=== PATIENT | male | born 2000 | race Caucasian/White ===

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

== ENCOUNTER 2021-05-22 21:32 | Emergency (ER) | payer OTHER ==
[~2021-05-22] VITALS: Ht 172.7 cm; Wt 94.7 kg
--- NOTE | 2021-05-22 23:03 | REPVR ---
PROCEDURE INFORMATION: Exam: CT Head Without Contrast Exam date and time: 05/22/2021 10:19 PM Age: 21 years old Clinical indication: Injury or trauma; Fall; Blunt trauma (contusions or hematomas) TECHNIQUE: Imaging protocol: Computed tomography of the head without contrast. Radiation optimization: All CT scans at this facility use at least one of these dose optimization techniques: automated exposure control; mA and/or kV adjustment per patient size (includes targeted exams where dose is matched to clinical indication); or iterative reconstruction. COMPARISON: No relevant prior studies available. FINDINGS: Brain: Normal. No hemorrhage. Unremarkable white matter. No mass effect. Cerebral ventricles: No ventriculomegaly. Paranasal sinuses: Visualized sinuses are unremarkable. No fluid levels. Mastoid air cells: Visualized mastoid air cells are well aerated. Bones/joints: Unremarkable. No acute fracture. Soft tissues: Unremarkable. IMPRESSION: No acute intracranial abnormality. Electronically signed by: Jerome Navarro On 05/22/2021 23:02:57 PM
--- NOTE | 2021-05-22 23:10 | REPVR ---
PROCEDURE INFORMATION: Exam: CT Cervical Spine Without Contrast Exam date and time: 05/22/2021 10:19 PM Age: 21 years old Clinical indication: Injury or trauma; Fall; Blunt trauma TECHNIQUE: Imaging protocol: Computed tomography images of the cervical spine without contrast. Radiation optimization: All CT scans at this facility use at least one of these dose optimization techniques: automated exposure control; mA and/or kV adjustment per patient size (includes targeted exams where dose is matched to clinical indication); or iterative reconstruction. COMPARISON: No relevant prior studies available. FINDINGS: Bones/joints: No acute fracture. Normal alignment. Discs/Spinal canal/Neural foramina: No significant disc protrusion. No severe spinal canal stenosis. No significant neural foraminal narrowing. Lungs: Lung apices are normal. Soft tissues: Unremarkable. IMPRESSION: No acute findings. Electronically signed by: Jerome Navarro On 05/22/2021 23:09:45 PM
[2021-05-23] VITALS: BP 117/62
== END 2021-05-23 00:27 | disposition home or self-care (01) ==
LOC: M ED 21:32
DX: S06.0X0A Concussion without loss of consciousness, initial encounter (principal); W22.8XXA Striking against or struck by other objects, initial encounter; Y92.009 Unspecified place in unspecified non-institutional (private) residence as the place of occurrence of the external cause; Y93.9 Activity, unspecified; Y99.9 Unspecified external cause status

== ENCOUNTER 2021-07-24 06:19 | Emergency (ER) | payer OTHER ==
[~2021-07-24] VITALS: Ht 172.7 cm; Wt 94.3 kg
[2021-07-24] MEDS ORDERED: IBUP1TAB5 PO (06:24)
[2021-07-24] MEDS ORDERED: NS 1,000 ML IV ONE (07:15)
[2021-07-24] MEDS ORDERED: ONDANSETRON 4MG/2ML VIAL IV ONE (07:15)
[2021-07-24 07:41] LABS: BASO % 0.3 % (0.0-1.0); EOS # 0.2 10^3/uL (0.0-0.5); EOS % 3.6 % (0.0-3.0); HEMATOCRIT 44.2 % (42.0-52.0); HEMOGLOBIN 15.1 g/dl (13.5-17.5); LYMPH # 1.7 10^3/uL (1.5-5.0); LYMPH % 29.2 % (24.0-44.0); MEAN CORPUSCULAR HEMOGLOBIN 28.1 pg (27.0-33.0); MEAN CORPUSCULAR HGB CONC 34.2 g/dl (32.0-36.5); MEAN CORPUSCULAR VOLUME 82.3 fl (80.0-96.0); MONO # 0.5 10^3/uL (0.0-0.8); MONO % 7.8 % (2.0-8.0); NEUTROPHILS # 3.5 10^3/uL (1.5-8.5); NEUTROPHILS % 58.8 % (36.0-66.0); PLATELET COUNT, AUTOMATED 245 10^3/uL (150-450); RED BLOOD COUNT 5.37 10^6/uL (4.30-6.10); WHITE BLOOD COUNT 5.9 10^3/uL (4.0-10.0)
[2021-07-24 08:00] LABS: BILIRUBIN,DIRECT 0.3 MG/DL (0.0-0.2); BILIRUBIN,TOTAL 1.9 MG/DL (0.2-1.0); TOTAL PROTEIN 7.6 GM/DL (6.4-8.2)
[2021-07-24] MEDS ORDERED: ISOVUE-370 76% 100ML VIAL As Ordered ONE (08:04)
[2021-07-24 08:15] LABS: RSV AMPLIFICATION NEGATIVE (NEGATIVE)
--- NOTE | 2021-07-24 08:34 | REP ---
INDICATION: lower abdl pain x 4 wks. COMPARISON: None TECHNIQUE: Axial contrast-enhanced images from the lung bases to the pubic symphysis using 100 cc Isovue 370 intravenous contrast material. Coronal and sagittal reformations obtained. This CT examination was performed using the following dose reduction techniques: Automated exposure control, adjustment of mA and/or kv according to the patient's size, and the use of iterative reconstruction technique. FINDINGS: Liver, spleen, pancreas, gallbladder, bilateral adrenal glands and kidneys are normal. There are few mildly prominent lymph nodes in a right lower quadrant/pericecal distribution which may reflect mesenteric adenitis. The terminal ileum, cecum and appendix are normal in appearance. There also appears to be a prominent amount of fecal material within the mid to distal sigmoid and rectum which may reflect constipation and possible impaction which requires clinical correlation. The remainder of the small and large bowel is unremarkable. Pelvis demonstrates normal bladder and age-appropriate prostate/seminal vesicles. No ascites. No free air. No intraperitoneal or retroperitoneal adenopathy. Abdominal aorta and vasculature appear normal. Musculoskeletal structures are intact and without acute osseous abnormality. IMPRESSION: 1. Questionable mesenteric adenitis with normal appearance of the cecum, terminal ileum and appendix. 2. Possible constipation and impaction involving the rectosigmoid colon which requires correlation. 3. No further acute abdominopelvic pathology appreciated. <Electronically signed by Isak Gallegos > 07/24/21 1614
[2021-07-24 08:53] VITALS: BP 107/52
== END 2021-07-24 08:55 | disposition home or self-care (01) ==
LOC: M ED 06:19
DX: I88.0 Nonspecific mesenteric lymphadenitis (principal); R10.9 Unspecified abdominal pain; F17.290 Nicotine dependence, other tobacco product, uncomplicated
CPT/HCPCS: 74177; 80047; 80076; 83690; 85025; 87631; 93041; 96361; 96374; 99284; J2405; Q9967

== ENCOUNTER 2021-08-13 19:03 | Emergency (ER) | payer OTHER ==
[~2021-08-13 19:03] MED LIST: IBUP1TAB5 PO
[2021-08-13 22:22] VITALS: BP 126/74
== END 2021-08-13 22:24 | disposition home or self-care (01) ==
LOC: M ED 19:03
DX: F43.0 Acute stress reaction (principal); Z63.0 Problems in relationship with spouse or partner